=== PATIENT | male | born 1940 | race Caucasian/White ===

== ENCOUNTER → 2018-03-06 | Outpatient (CLI) | payer MEDICARE ==
[2016-12-03 10:58] VITALS: BMI 27.4
[~2018-03-06] MED LIST: ASPI-1471 PO; CEPH-13 PO; CEPH500C24 PO; CEPH500T7 PO; CIPR-214 PO; CLOP75TA43 PO; ENAL20TA99 PO; FAMO-67 PO; FAMO20TA28 PO; HYDR-318 PO; HYDR-385 PO; HYDR-389 PO; IBUP800T37 PO; LOR5/325 PO; MULT-1335 PO; OMEP-125 PO; PHEN30SP NS; TAMS0.4C25 PO; [UNRECOGNIZED DRUG - CODE] NS
--- NOTE | 2018-03-06 16:44 | RADIOLOGY IMAGING REPORT ---
FACILITY: [facility] [place] PATIENT NAME: Unruly Street : 1940 MR: [id number] V: [id number] EXAM DATE: ORDERING PHYSICIAN: JOSE DE ANDA TECHNOLOGIST: [place] [facility] [place] Unruly Street : 1940 Visit/Account:[id number] Date of Sevice: 03/06/2018 EXAMINATION: CT ABDOMEN AND PELVIS WITHOUT CONTRAST COMPARISON: CT 10/27/2016 and earlier. HISTORY: Hematuria. Ureteral obstruction 1 year ago. PROCEDURE: Multiplanar noncontrast CT of the abdomen and pelvis. One of the following dose optimizati on techniques was utilized in the performance of this exam: Automated exposure control; adjustment of the mA and/or kV according to the patient's size; or use of an iterative reconstruction technique. Specific details can be referenced in the facility's radiology CT exam operational policy. FINDINGS: Evaluation of the solid and viscus parenchymal organs and vascular structures is limited wi thout the benefit of IV contrast. Visualized thorax: Moderate sized hiatal hernia. No acute findings. Liver: Noncontrast imaging of the visualized liver is within normal limits. Gallbladder and biliary system: Negative Spleen: Negative. Pancreas: Noncontrast imaging of the pancreas is within normal limits. Adrenal glands: Bilateral mild adrenal hyperplasia as before. Kidneys and bladder: Bilateral small parapelvic cysts including a dominant left kidney midpole 5.0 x 4.2 cm cyst appear minimally changed. A few surgical clips are now present along the inferior margin of the left renal pelvis. Right kidney lower pole probable punctate nonobstructing stone. Left kidney lower pole probable vascular calcifications or less likely nonobstructing stones are unchanged as we ll. No radiopaque ureteral stone or hydronephrosis. Vessels: Aortoiliac moderate atherosclerosis. No abdominal aortic aneurysm. Left iliac vein stent as before. Bowel and mesentery: Moderate hiatal hernia. No gastric distention. No small bowel obstruction. The a ppendix is not identified; no pericecal inflammation. Small to moderate amount of stool predominantly in the ascending and transverse colon. No bowel or mesenteric inflammation. Pelvic organs: Mildly enlarged and heterogeneous prostate. Lymph nodes: No adenopathy. Free air/free fluid: Well-circumscribed thick-walled 15.7 x 4.0 x 4.1 cm fluid collection anterior to the left psoas previously measured 15.9 x 2.9 x 4.1 cm. No other abdominopelvic gas or fluid collect ion. Abdominal wall and osseous structures: Abdominal wall postoperative change with no evidence of hernia . L4-S1 posterior and anterior fusion with unchanged L5-S1 anterolisthesis. No acute osseous normalit y. IMPRESSION: 1. Right kidney lower pole punctate nonobstructing stone. No radiopaque ureteral stone or hydronephro sis. 2. Moderate-sized hiatal hernia is unchanged. 3. Minimally changed appearance of the well-circumscribed fluid collection along the surface of the l eft psoas. 4. Additional nonacute findings as described above. Report Dictated By: Klaus Hardy MD at 03/06/2018 4:24 PM Report E-Signed By: Klaus Hardy MD at 03/06/2018 4:40 PM WSN:[id number]
== END ==
LOC: CT 15:42
DX: N20.0 Calculus of kidney (principal); I70.0 Atherosclerosis of aorta; N40.1 Benign prostatic hyperplasia with lower urinary tract symptoms; K44.9 Diaphragmatic hernia without obstruction or gangrene
CPT/HCPCS: 36415; 74176; 84153